=== PATIENT | male | born 1990 | race Two or more races ===

== ENCOUNTER 2025-01-15 01:10 | Inpatient (IN) | payer OTHER ==
[~2025-01-15] VITALS: Ht 170.2 cm; Wt 141.7 kg
[2025-01-15] MEDS ORDERED: KETOROLAC TROMETHAMINE INJ 30 MG/ML VIAL ONE (02:37)
[2025-01-15] MEDS: KETOROLAC TROMETHAMINE INJ 30 MG/ML VIAL IM ONE (02:44)
[2025-01-15 03:11] LABS: PLATELET COUNT (AUTO) 408 K/uL (150-450); RED BLOOD CELL COUNT(AUTO) 3.83 MIL/uL (4.5-6.0); RED CELL DISTRIBUTION WIDTH 15.4 % (11.5-15.0); WHITE BLOOD COUNT (AUTO) 14.0 K/uL (4.3-11.0)
[2025-01-15 03:25] LABS: CALCIUM, SERUM 8.3 mg/dL (8.5-10.1); CREATININE 2.3 mg/dL (0.6-1.3); SODIUM SERUM 134 mmol/L (136-145); UREA NITROGEN, BLOOD 28 mg/dL (7-18)
[2025-01-15 03:31] LABS: ASPARTATE AMINOTRANSFERASE 13 U/L (15-37); TOTAL PROTEIN, SERUM 8.2 g/dL (6.4-8.2)
[2025-01-15 03:48] LABS: APPEARANCE,URINE CLEAR (CLEAR); BLOOD, URINE 2+ Ery/uL (NEGATIVE); LEUKOCYTE ESTERASE ,URINE NEGATIVE (NEGATIVE); NITRITE, URINE NEGATIVE (NEGATIVE); UGLUCOSE 1+ mg/dL (NEGATIVE)
[2025-01-15 03:51] LABS: AMPHETAMINE, URINE NEGATIVE (NEGATIVE); BARBITURATE, URINE NEGATIVE (NEGATIVE); BENZODIAZEPINE, URINE NEGATIVE (NEGATIVE); CANNABINOID, URINE NEGATIVE (NEGATIVE); COCCAINE, URINE NEGATIVE (NEGATIVE)
[2025-01-15 03:55] LABS: ADD URINE CULTURE NO; OPIATE, URINE POSITIVE (NEGATIVE); SQUAMOUS EPITHELIAL CELL,UR None Seen /HPF (None Seen)
[2025-01-15] MEDS ORDERED: VANCOMYCIN 500 MG VIAL ONE (04:58)
[2025-01-15] MEDS ORDERED: VANCOMYCIN 1 GM /D5W 250 ML PB IV ONE (04:59)
[2025-01-15] MEDS ORDERED: ONDANSETRON HCL/PF 4 MG/2 ML VIAL ONE (04:59)
[2025-01-15] MEDS ORDERED: MORPHINE SULFATE INJ 4 MG/ML DISP.SYRIN IV ONE (05:00)
[2025-01-15] MEDS: ONDANSETRON HCL/PF - ER 4 MG/2 ML VIAL IV ONE (05:07)
[2025-01-15] MEDS ORDERED: MORPHINE SULFATE INJ 2 MG/ML DISP.SYRIN ONE (05:17)
[2025-01-15] MEDS: VANCOMYCIN HCL 1.25 GM in IV D5W 260 ML IV ONE (05:22)
[2025-01-15] MEDS: MORPHINE SULFATE INJ 2 MG/ML DISP.SYRIN IV ONE (05:22)
[2025-01-15] MEDS ORDERED: ASCO-495 PO (09:00)
[2025-01-15] MEDS ORDERED: ONDA-97 PO (09:00)
[2025-01-15] MEDS ORDERED: HYDR-3972 PO (09:00)
[2025-01-15] MEDS ORDERED: CARB-231 EACHEYE (09:00)
[2025-01-15] MEDS ORDERED: EPOE1VIA7 SQ (09:00)
[2025-01-15] MEDS ORDERED: SODI10PO PO (09:00)
[2025-01-15] MEDS ORDERED: INSU100V3 SQ (09:00)
[2025-01-15] MEDS ORDERED: CLON0.1T PO (09:00)
[2025-01-15] MEDS ORDERED: NIFE60TA73 PO (09:00)
[2025-01-15] MEDS ORDERED: PANT20TA17 PO (09:00)
[2025-01-15] MEDS ORDERED: MIDO10TA PO (09:00)
[2025-01-15] MEDS ORDERED: FERR-68 PO (09:00)
[2025-01-15] MEDS ORDERED: GABA-532 PO (09:00)
[2025-01-15] MEDS ORDERED: CITR15SO PO (09:00)
[2025-01-15] MEDS ORDERED: INSU100V7 SQ (09:00)
[2025-01-15] MEDS ORDERED: NA P133E RC (09:00)
[2025-01-15] MEDS ORDERED: BISA10SU61 RC (09:00)
[2025-01-15] MEDS ORDERED: [UNRECOGNIZED DRUG - CODE] PO (09:00)
[2025-01-15] MEDS ORDERED: LORA-259 PO (09:00)
[2025-01-15] MEDS ORDERED: ACET-73 PO (09:00)
[2025-01-15] MEDS ORDERED: IPRA0.2S9 NEB (09:00)
[2025-01-15] MEDS ORDERED: ACET325T53 PO (09:00)
[2025-01-15] MEDS ORDERED: SENN-18 PO (09:00)
[2025-01-15] MEDS ORDERED: SIME80TA15 PO (09:00)
[2025-01-15] MEDS ORDERED: MENT113O TP (09:00)
[2025-01-15] MEDS ORDERED: MAGN400O6 PO (09:00)
[2025-01-15] MEDS ORDERED: AMIN30LI2 PO (09:00)
[2025-01-15] MEDS ORDERED: ZINC220C6 PO (09:00)
[2025-01-15] MEDS ORDERED: ZINC56.713 TP (09:00)
[2025-01-15] MEDS ORDERED: BLOO-1609 IJ (09:00)
[2025-01-15] MEDS ORDERED: HEPA50008 SQ (09:00)
[2025-01-15] MEDS ORDERED: MULT-754 PO (09:00)
[2025-01-15] MEDS ORDERED: POLYETHYLENE GLYCOL 3350 17 GM POWD.PACK PO PRN (10:00)
[2025-01-15] MEDS ORDERED: ONDANSETRON HCL/PF 4 MG/2 ML VIAL IVP PRN (10:00)
[2025-01-15] MEDS ORDERED: ASCORBIC ACID 250 MG TABLET PO SCH (10:00)
[2025-01-15] MEDS ORDERED: ACETAMINOPHEN 325 MG TABLET PO PRN (10:00)
[2025-01-15] MEDS ORDERED: DEXTROSE 50%-WATER 50 ML DISP.SYRIN IV PRN (10:00)
[2025-01-15] MEDS ORDERED: DOSING PER PHARMACY-ZOSYN IV 1 EA EA XX PRN (10:00)
[2025-01-15] MEDS ORDERED: DOSING PER PHARMACY-VANCOMYCIN IV XX PRN (10:00)
[2025-01-15] MEDS: MORPHINE SULFATE INJ 2 MG/ML DISP.SYRIN IV PRN (10:21)
[2025-01-15] MEDS: ZINC SULFATE 220 MG CAPSULE PO SCH (10:26)
[2025-01-15] MEDS: MULTIVIT W/MINERALS 1 TAB TABLET PO SCH (10:26)
[2025-01-15] MEDS: GABAPENTIN 100 MG CAPSULE PO SCH (10:26)
[2025-01-15] MEDS: CITRIC ACID/SODIUM CITRATE (BICITRA)15 ML UDC PO SCH (10:26)
[2025-01-15] MEDS: FERROUS SULFATE (325 MG) 325 MG/TAB TABLET PO SCH (10:26)
[2025-01-15] MEDS: NIFEdipine XL (30MG) 30 MG TAB PO SCH (10:28)
[2025-01-15] MEDS: PANTOPRAZOLE 40 MG TABLET.DR PO SCH (10:28)
[2025-01-15] MEDS: HEPARIN SODIUM, PORCINE 5000 UNITS/1 ML VIAL SQ SCH (10:44)
[2025-01-15 12:00] VITALS: BP 127/82; TEMP 98.4; O2SAT 95
[2025-01-15] MEDS: IV NS 0.9% 1,000 ML IV PRN (12:56)
[2025-01-15] MEDS: BLOOD SUGAR DIAGNOSTIC 1 EACH STRIP IN SCH (12:57)
[2025-01-15] MEDS: ZOSYN IVPB 3.375 G in IV D5W 50ml IV ONE (12:57)
[2025-01-15 16:00] VITALS: BP 136/89; TEMP 97.9; O2SAT 98
[2025-01-15] MEDS: PIPERACILLIN /TAZOBACTAM 3.375 G in IV D5W 100 ML IV SCH (18:19)
[2025-01-15 20:00] VITALS: BP 130/87; TEMP 98.6; O2SAT 98
[2025-01-15] MEDS: INSULIN GLARGINE, 100 UNIT/ML CARTRIDGE SQ SCH (21:29)
[2025-01-15] MEDS: INSULIN REGULAR, HUMAN 100 UNIT/ML 3 ML VIAL SQ PRN (23:04)
[2025-01-16] MEDS: VANCOMYCIN HCL 1.25 GM in IV D5W 250 ML IV SCH (06:00)
[2025-01-16 07:41] LABS: CALCIUM, SERUM 8.3 mg/dL (8.5-10.1); CREATININE 2.3 mg/dL (0.6-1.3); PHOSPHORUS 4.3 mg/dL (2.5-4.9); SODIUM SERUM 140.0 mmol/L (136-145); UREA NITROGEN, BLOOD 33.0 mg/dL (7-18)
[2025-01-16 08:10] LABS: PLATELET COUNT (AUTO) 358 K/uL (150-450); RED BLOOD CELL COUNT(AUTO) 3.29 MIL/uL (4.5-6.0); RED CELL DISTRIBUTION WIDTH 15.6 % (11.5-15.0); WHITE BLOOD COUNT (AUTO) 11.0 K/uL (4.3-11.0)
[2025-01-16 08:20] VITALS: BP 135/75; TEMP 97.7; O2SAT 97
[2025-01-16] MEDS: ASCORBIC ACID 500 MG TABLET PO SCH (09:16)
[2025-01-16] MEDS: MAGNESIUM OXIDE 400 MG TABLET PO ONE (11:17)
[2025-01-16 16:09] VITALS: BP 119/70; TEMP 98; O2SAT 94
[2025-01-16 16:11] LABS: PROTEIN, BODY FLUID 5.5 G/DL
[2025-01-16 16:24] LABS: WBC, BODY FLUID 2289 /cu. mm. (0-200)
[2025-01-16 16:34] LABS: MONOCYTES,BODY FLUID 1 %
[2025-01-16 16:35] LABS: APPEARANCE,SPUN,BODY FLUID CLEAR (CLEAR); TOTAL VOLUME,BODY FLUID 35 mL
[2025-01-16 20:37] VITALS: BP 116/73; TEMP 98.2; O2SAT 96
[2025-01-16] MEDS: HYDROMORPHONE 1 MG/1 ML DISP.SYRIN IV PRN (21:01)
[2025-01-17 07:09] LABS: ASPARTATE AMINOTRANSFERASE 14 U/L (15-37); CALCIUM, SERUM 7.9 mg/dL (8.5-10.1); CREATINE KINASE, TOTAL 23 U/L (39-308); CREATININE 2.5 mg/dL (0.6-1.3); PHOSPHORUS 4.1 mg/dL (2.5-4.9); SODIUM SERUM 139 mmol/L (136-145); TOTAL PROTEIN, SERUM 7.2 g/dL (6.4-8.2); UREA NITROGEN, BLOOD 36 mg/dL (7-18)
[2025-01-17 07:23] LABS: PLATELET COUNT (AUTO) 401 K/uL (150-450); RED BLOOD CELL COUNT(AUTO) 3.29 MIL/uL (4.5-6.0); RED CELL DISTRIBUTION WIDTH 15.5 % (11.5-15.0); WHITE BLOOD COUNT (AUTO) 9.9 K/uL (4.3-11.0)
[2025-01-17 08:00] VITALS: BP 98/64; TEMP 98.2; O2SAT 97
[2025-01-17] MEDS: Z GUARD REMEDY 4 OZ OINT TP SCH (09:43)
[2025-01-17] MEDS: MAGNESIUM OXIDE 400 MG TABLET PO ONE (14:43)
[2025-01-17 16:00] VITALS: BP 124/76; TEMP 97.2; O2SAT 96
[2025-01-17] MEDS: HYDROCORTISONE 1% CREAM 28.35 GM TUBE TP SCH (17:07)
[2025-01-17 20:00] VITALS: BP 106/66; TEMP 97.9; O2SAT 100
[2025-01-18 03:07] LABS: PTH, INTACT 19 pg/mL (15-65)
[2025-01-18 08:00] VITALS: BP 100/67; TEMP 97.7; O2SAT 97
[2025-01-18 09:33] LABS: PLATELET COUNT (AUTO) 439 K/uL (150-450); RED BLOOD CELL COUNT(AUTO) 3.67 MIL/uL (4.5-6.0); RED CELL DISTRIBUTION WIDTH 15.7 % (11.5-15.0); WHITE BLOOD COUNT (AUTO) 9.2 K/uL (4.3-11.0)
[2025-01-18 09:52] LABS: ASPARTATE AMINOTRANSFERASE 14.0 U/L (15-37); CALCIUM, SERUM 8.3 mg/dL (8.5-10.1); CREATININE 2.8 mg/dL (0.6-1.3); PHOSPHORUS 4.4 mg/dL (2.5-4.9); SODIUM SERUM 139.0 mmol/L (136-145); TOTAL PROTEIN, SERUM 7.9 g/dL (6.4-8.2); UREA NITROGEN, BLOOD 39.0 mg/dL (7-18)
[2025-01-18] MEDS ORDERED: SULF1TAB48 PO (10:31)
[2025-01-18] MEDS ORDERED: CEPH-570 PO (10:31)
[2025-01-18 16:00] VITALS: BP 136/80; TEMP 98.1; O2SAT 99
[2025-01-18 20:00] VITALS: BP 116/71; TEMP 98.4; O2SAT 99
[2025-01-19 04:54] LABS: ASPARTATE AMINOTRANSFERASE 14.0 U/L (15-37); CALCIUM, SERUM 8.1 mg/dL (8.5-10.1); CREATININE 2.8 mg/dL (0.6-1.3); PHOSPHORUS 4.0 mg/dL (2.5-4.9); SODIUM SERUM 141.0 mmol/L (136-145); TOTAL PROTEIN, SERUM 7.4 g/dL (6.4-8.2); UREA NITROGEN, BLOOD 38.0 mg/dL (7-18)
[2025-01-19 07:00] VITALS: BP 117/70; TEMP 97.5; O2SAT 95
[2025-01-19 08:04] LABS: PLATELET COUNT (AUTO) 244 K/uL (150-450); RED BLOOD CELL COUNT(AUTO) 3.12 MIL/uL (4.5-6.0); RED CELL DISTRIBUTION WIDTH 15.6 % (11.5-15.0); WHITE BLOOD COUNT (AUTO) 5.2 K/uL (4.3-11.0)
[2025-01-19] MEDS: CEPHALEXIN MONOHYDRATE 500 MG CAPSULE PO SCH (12:52)
[2025-01-19 16:00] VITALS: BP 136/78; TEMP 97.7; O2SAT 99
[2025-01-19 20:00] VITALS: BP 157/100; TEMP 98.2; O2SAT 95
[2025-01-19] MEDS: SULFAMETH/TRIMETH 800/160 MG 1 UDTAB TABLET PO SCH (20:15)
[2025-01-20 04:09] LABS: CREATININE, URINE 36.7 MG/DL (30.0-125.0); URINE SODIUM, RANDOM 114.0 mmol/l (40-220); URINE TOTAL PROTEIN 474.4 mg/dL (0-11.9)
[2025-01-20 07:30] VITALS: BP 147/92; TEMP 97.9; O2SAT 98
[2025-01-20 11:20] LABS: PLATELET COUNT (AUTO) 411 K/uL (150-450); RED BLOOD CELL COUNT(AUTO) 3.41 MIL/uL (4.5-6.0); RED CELL DISTRIBUTION WIDTH 15.9 % (11.5-15.0); WHITE BLOOD COUNT (AUTO) 7.8 K/uL (4.3-11.0)
[2025-01-20 11:42] LABS: ASPARTATE AMINOTRANSFERASE 12.0 U/L (15-37); CALCIUM, SERUM 8.5 mg/dL (8.5-10.1); CREATININE 2.5 mg/dL (0.6-1.3); PHOSPHORUS 3.9 mg/dL (2.5-4.9); SODIUM SERUM 144.0 mmol/L (136-145); TOTAL PROTEIN, SERUM 7.5 g/dL (6.4-8.2); UREA NITROGEN, BLOOD 32.0 mg/dL (7-18)
[2025-01-20 16:00] VITALS: BP 156/91; TEMP 98.1; O2SAT 96
[2025-01-20 20:00] VITALS: BP 164/96; TEMP 97.9; O2SAT 98
[2025-01-20 21:30] VITALS: BP 152/80; TEMP 98; O2SAT 98
[2025-01-21 03:11] VITALS: BP 164/96; TEMP 97.9; O2SAT 19
[2025-01-21 07:18] LABS: CALCIUM, SERUM 8.5 mg/dL (8.5-10.1); CREATININE 2.4 mg/dL (0.6-1.3); SODIUM SERUM 144.0 mmol/L (136-145); UREA NITROGEN, BLOOD 28.0 mg/dL (7-18)
[2025-01-21 08:00] VITALS: BP 102/66; TEMP 97.7; O2SAT 96
[2025-01-21] MEDS: Z GUARD REMEDY 4 OZ OINT TP PRN (08:29)
[2025-01-21] MEDS: CITRIC ACID/SODIUM CITRATE (BICITRA)15 ML UDC PO SCH (10:00)
[2025-01-21] MEDS: IV NS 0.9% 1,000 ML IV PRN (14:57)
[2025-01-21 16:00] VITALS: BP 130/77; TEMP 97.9; O2SAT 98
[2025-01-21 20:00] VITALS: BP 124/74; TEMP 98.4; O2SAT 95
[2025-01-22 07:45] LABS: CALCIUM, SERUM 8.4 mg/dL (8.5-10.1); CREATININE 2.3 mg/dL (0.6-1.3); SODIUM SERUM 141.0 mmol/L (136-145); UREA NITROGEN, BLOOD 27.0 mg/dL (7-18)
[2025-01-22 07:59] LABS: PLATELET COUNT (AUTO) 99 K/uL (150-450); RED BLOOD CELL COUNT(AUTO) 3.32 MIL/uL (4.5-6.0); RED CELL DISTRIBUTION WIDTH 17.1 % (11.5-15.0); WHITE BLOOD COUNT (AUTO) 6.3 K/uL (4.3-11.0)
[2025-01-22 10:21] LABS: ABG BASE EXCESS -9.5 mmol/L (-2.0-3.0); ABG OXYGEN SATURATION 95.3 % (94.0-98.0); ABG PCO2 35.2 mmHg (35.0-48.0); ABG PH 7.283 (7.350-7.450); ABG PO2 80.5 mmHg (83.0-108.0); ABG TOTAL HEMOGLOBIN 10.2 G/dL (13.5-17.5); FRACTIONATED INSPIRED OXYGEN 21.0 %; SITE, ABG LEFT RADIAL
[2025-01-22] MEDS: SODIUM ZIRCONIUM CYCLOSILICATE 10 GM POWD.PACK PO SCH (10:56)
[2025-01-22] MEDS: CITRIC ACID/SODIUM CITRATE (BICITRA)15 ML UDC PO SCH (12:40)
[2025-01-22 16:00] VITALS: BP 113/57; TEMP 97.5; O2SAT 97
[2025-01-22 17:04] LABS: CALCIUM, SERUM 8.4 mg/dL (8.5-10.1); CREATININE 2.4 mg/dL (0.6-1.3); SODIUM SERUM 145.0 mmol/L (136-145); UREA NITROGEN, BLOOD 27.0 mg/dL (7-18)
[2025-01-22 20:00] VITALS: BP_SYST 132; BP_SYST 137; BP_DIAS 77; TEMP 98.2; O2SAT 94
[2025-01-23 07:10] LABS: PLATELET COUNT (AUTO) 359 K/uL (150-450); RED BLOOD CELL COUNT(AUTO) 3.24 MIL/uL (4.5-6.0); RED CELL DISTRIBUTION WIDTH 15.6 % (11.5-15.0); WHITE BLOOD COUNT (AUTO) 8.0 K/uL (4.3-11.0)
[2025-01-23 08:00] VITALS: BP 117/67; TEMP 98.2; O2SAT 97
[2025-01-23 08:14] LABS: ASPARTATE AMINOTRANSFERASE 13.0 U/L (15-37); CALCIUM, SERUM 8.2 mg/dL (8.5-10.1); CREATININE 2.4 mg/dL (0.6-1.3); PHOSPHORUS 4.1 mg/dL (2.5-4.9); SODIUM SERUM 145.0 mmol/L (136-145); TOTAL PROTEIN, SERUM 7.0 g/dL (6.4-8.2); UREA NITROGEN, BLOOD 27.0 mg/dL (7-18)
[2025-01-23] MEDS: MAGNESIUM OXIDE 400 MG TABLET PO ONE (10:41)
[2025-01-23 16:00] VITALS: BP 126/78; TEMP 98.1; O2SAT 98
[2025-01-23 20:00] VITALS: BP 136/76; TEMP 97.7; O2SAT 96
[2025-01-23 21:08] VITALS: BP 136/76; TEMP 97.7; O2SAT 96
[2025-01-24 07:37] LABS: ASPARTATE AMINOTRANSFERASE 15.0 U/L (15-37); CALCIUM, SERUM 8.0 mg/dL (8.5-10.1); CREATININE 2.3 mg/dL (0.6-1.3); PHOSPHORUS 3.7 mg/dL (2.5-4.9); SODIUM SERUM 146.0 mmol/L (136-145); TOTAL PROTEIN, SERUM 7.4 g/dL (6.4-8.2); UREA NITROGEN, BLOOD 25.0 mg/dL (7-18)
[2025-01-24 07:58] LABS: PLATELET COUNT (AUTO) 377 K/uL (150-450); RED BLOOD CELL COUNT(AUTO) 3.56 MIL/uL (4.5-6.0); RED CELL DISTRIBUTION WIDTH 15.9 % (11.5-15.0); WHITE BLOOD COUNT (AUTO) 8.9 K/uL (4.3-11.0)
[2025-01-24 08:00] VITALS: BP 143/86; TEMP 97.7; O2SAT 99
[2025-01-24] MEDS: MAGNESIUM OXIDE 400 MG TABLET PO ONE (09:54)
[2025-01-24 16:00] VITALS: BP 112/70; TEMP 97.9; O2SAT 98
[2025-01-25 08:00] VITALS: BP 143/82; TEMP 98.4; O2SAT 97
[2025-01-25 09:39] VITALS: BP 143/82
[2025-01-25] MEDS: HYDROMORPHONE 1 MG/1 ML DISP.SYRIN IV ONE (13:14)
[2025-01-26 11:07] LABS: *SPE A/G RATIO 0.4 (0.7-1.7); *SPE ALBUMIN 1.8 g/dL (2.9-4.4); *SPE ALPHA-1-GLOBULIN 0.3 g/dL (0.0-0.4); *SPE ALPHA-2-GLOBULIN 1.0 g/dL (0.4-1.0); *SPE BETA GLOBULIN 1.1 g/dL (0.7-1.3); *SPE GLOBULIN, TOTAL 4.5 g/dL (2.2-3.9); *SPE M-SPIKE Not Observed g/dL (Not Observed); *SPE PROTEIN TOTAL 6.3 g/dL (6.0-8.5); *SPEGAMMA GLOBULIN 2.1 g/dL (0.4-1.8)
== END 2025-01-25 14:00 | DRG 351 ==
LOC: ER 01:18 → MED 07:43
PROVIDERS: ADMIT Nurse Practitioner Acute Care
PROC: 0S9C3ZZ Drainage of Right Knee Joint, Percutaneous Approach (ICD-10-PCS; principal; 2025-01-16)
DX: M25.461 Effusion, right knee (principal); N17.0 Acute kidney failure with tubular necrosis; D68.59 Other primary thrombophilia; E87.20 Acidosis, unspecified; L03.115 Cellulitis of right lower limb; E87.1 Hypo-osmolality and hyponatremia; N18.4 Chronic kidney disease, stage 4 (severe); E11.22 Type 2 diabetes mellitus with diabetic chronic kidney disease; M86.8X6 Other osteomyelitis, lower leg; I12.9 Hypertensive chronic kidney disease with stage 1 through stage 4 chronic kidney disease, or unspecified chronic kidney disease; D64.9 Anemia, unspecified; E83.42 Hypomagnesemia; E87.5 Hyperkalemia; Z89.511 Acquired absence of right leg below knee; Z89.512 Acquired absence of left leg below knee; Z20.822 Contact with and (suspected) exposure to COVID-19; E66.01 Morbid (severe) obesity due to excess calories; Z68.42 Body mass index [BMI] 45.0-49.9, adult; E11.42 Type 2 diabetes mellitus with diabetic polyneuropathy; E11.51 Type 2 diabetes mellitus with diabetic peripheral angiopathy without gangrene; Z83.3 Family history of diabetes mellitus
CPT/HCPCS: 36415; 36600; 73552; 73564-TC; 73700-TC; 76770-TC; 80048-TC; 80053-TC; 80202-TC; 81001; 82550-TC; 82570-TC; 82803-TC; 82962-TC; 83605-TC; 83735-TC; 83970; 84100-TC; 84155; 84165; 84300-TC; 85025-TC; 85652-TC; 86140-TC; 87040-TC; 87070-TC; 87081-TC; 89051-TC; 89060-TC; 93970-TC; 97110-TC; 97530-TC; 97535-TC; A4223; A6403; A6407; G0378; J1171; J1644; J1815; J1885; J2270; J2405; J2543; J3370; J7030; J7060